=== PATIENT | male | born 1945 | race African-American/Black ===

== ENCOUNTER 2017-03-07 23:47 | Inpatient (IN) ==
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
[2017-03-08] MEDS ORDERED: cefTRIAXone 1,000 MG in SODIUM CHLORIDE 0.9% 100 ML IV STA (01:49)
[2017-03-08] MEDS ORDERED: cefTRIAXone 1,000 MG VIAL ONE (01:55)
[2017-03-08] MEDS ORDERED: SODIUM CHLORIDE 0.9% 1,000 ML IV SCH (04:25)
[2017-03-08] MEDS ORDERED: ONDANSETRON 4 MG/2 ML VIAL IV PRN (04:25)
[2017-03-08] MEDS ORDERED: DILTIAZEM INJ 100 MG in SODIUM CHLORIDE 0.9% 100 ML IV SCH (04:25)
[2017-03-08] MEDS ORDERED: LORazepam 1 MG TABLET PO PRN (04:25)
[2017-03-08] MEDS ORDERED: MORPHINE 2 MG/1 ML SYRINGE IV PRN (04:25)
--- NOTE | 2017-03-08 06:01 | EKG Report ---
Stationary ECG Study [facility] Test Date: 03/08/2017 12:02:50 AM Pat Name: RAGHU AZUL Department: Room: 282 Gender: M Legal Services Manager: : 1945 Requested by: Jones Ladd Order Number: [id number] Karthik MD: LESA BERGMAN Intervals [place] Rate: 123 P: 999 AK: 0 QRS: 36 QRSD: 102 T: 85 QT: 333 QTc: 406 Interpretive Statements ATRIAL FIBRILLATION WITH RAPID VENTRICULAR RESPONSE ABNORMAL RHYTHM ECG Electronically Signed On 03-08-17 11:01:41 CDT by LESA BERGMAN [email or web address]
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
[2017-03-08 08:22] LABS: Troponin I Only 0.033 NG/ML (0.00-0.045)
--- NOTE | 2017-03-08 08:38 | Ultrasound Report ---
US carotid duplex BI Indication: Right-sided dysmetria. Comparison: None. Technique: Multiple longitudinal and transverse real-time sonographic images of the bilateral carotid arterial systems are obtained with grayscale, spectral, and color Doppler analysis. Findings: Peak systolic velocities within the right CCA, proximal ICA, and distal ICA are 93, 38, and 46 cm/s respectively. Peak systolic velocities within the left CCA, proximal ICA, and distal ICA are 90, 43, and 47 cm/s respectively. ICA/CCA ratios on the right and left are 0.5 and 0.5 respectively. Antegrade flow demonstrated within the bilateral vertebral arteries. Grayscale imaging demonstrates mild bilateral atherosclerotic plaque. IMPRESSION: No convincing sonographic evidence of significant (50% or greater) narrowing of either cervical internal carotid artery. Indirect NASCET criteria utilized. PROCEDURE INTERPRETED AT [facility] DEPARTMENT OF RADIOLOGY Final Report Signed by: Dr Adair Beck
--- NOTE | 2017-03-08 08:41 | EKG Report ---
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
[2017-03-08] MEDS: PANTOPRAZOLE 40 MG TABLET PO SCH (08:54)
[2017-03-08] MEDS: TAMSULOSIN 0.4 MG CAPSULE PO SCH ×2 (08:54→21:57)
[2017-03-08] MEDS: METOPROLOL SUCCINATE XL 25 MG TABLET PO SCH ×2 (08:55→21:57)
[2017-03-08] MEDS: APIXABAN 5 MG TABLET PO SCH ×2 (08:55→21:57)
[2017-03-08] MEDS: FINASTERIDE 5 MG TABLET PO SCH (08:55)
[2017-03-08] MEDS: LUBIPROSTONE 8 MCG CAPSULE PO SCH ×2 (08:56→21:57)
[2017-03-08] MEDS: MULTIVITAMIN (CENTRUM) TABLET PO SCH (08:56)
[2017-03-08] MEDS: VALSARTAN 160 MG TABLET PO SCH (08:56)
[2017-03-08] MEDS: ATORVASTATIN 80 MG TABLET PO SCH (08:56)
[2017-03-08] MEDS: COLCHICINE 0.6 MG TABLET PO SCH (08:57)
[2017-03-08] MEDS: buPROPion 75 MG TABLET PO SCH (08:58)
[2017-03-08] MEDS: POTASSIUM CHLORIDE 10 MEQ TABLET PO SCH (08:58)
[2017-03-08] MEDS ORDERED: amLODIPine 5 MG TABLET PO SCH (09:00)
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
[2017-03-08 10:57] LABS: Basophils # 0.1 10*3/uL (0.0-0.2); Basophils % 0.3 % (0.0-0.8); Eosinophils # 0.3 10*3/uL (0.0-0.87); Eosinophils % 1.8 % (0.00-10.9); Hematocrit 36.9 VOL% (42.0-52.0); Hemoglobin 12.7 GM/DL (14.0-18.0); Immature Granulocytes % 0.7 %; Lymphocytes # 1.1 10*3/uL (1.4-4.0); Lymphocytes % 7.4 % (21.2-54.2); Mean Corpuscular HGB Conc 34.4 GM/DL (32-36); Mean Corpuscular Hemoglobin 32 PG (27-34); Mean Corpuscular Volume 92.9 FL (87-102); Mean Platelet Volume 9.5 FL (9.6-12.0); Monocytes # 0.9 10*3/uL (0.11-0.8); Monocytes % 6.2 % (1.7-12.7); Neutrophils % 83.6 % (38.7-73.9); Platelet Count 147 T/CUMM (130-400); Red Blood Count 3.97 MC/CUMM (3.8-5.5); Red Cell Distribution Width 14.9 % (9.3-17.3); White Blood Count 14.4 T/CUMM (4-12)
[2017-03-08 11:30] LABS: Calcium 8.5 MG/DL (8.5-10.1); Magnesium 2.1 MG/DL (1.8-2.4); Osmolality,Calculated 284.4 MOS/KG (273-304); Potassium 3.9 MMOL/L (3.5-5.1)
--- NOTE | 2017-03-08 12:49 | Magnetic Resonance Report ---
History: Right-sided dysmetria Date: 03/08/2017 Study: MRI brain without IV contrast Comparison exam: MRI brain November 13, 2015 The brain was imaged in 3 planes on the 1.5 Isela magnet without IV contrast, to include diffusion, T2, FLAIR, gradient echo, and T1-weighted sequences. The ventricles are midline in position without evidence of hydrocephalus. There is no Chiari I malformation. There is no gross pituitary mass. There is no evidence of acute ischemia on the diffusion sequence. There is a moderate amount of patchy increased FLAIR and T2 signal in the periventricular white matter without mass effect or enhancement compatible with changes of small vessel disease. Small areas of chronic lacunar ischemia are noted in the jaime bilaterally, bilateral thalami, bilateral putamen, and bilateral caudate nuclei as before. There is a chronic lacunar infarct in the centrum semiovale on the right which was not present on the comparison study. There is no parenchymal hemorrhage or area of mass effect. There is a normal flow void in the superior sagittal sinus. There is no extra-axial hematoma. Remote post cataract surgery changes of either globe are present. Impression: Chronic ischemic changes with areas of chronic lacunar infarct in the jaime and basal ganglia regions. There is a chronic lacunar infarct in the centrum semiovale on the right which was not present in 2016. No acute process. No parenchymal hemorrhage PROCEDURE INTERPRETED AT [facility] DEPARTMENT OF RADIOLOGY Final Report Signed by: Dr. Saida Ford
--- NOTE | 2017-03-08 13:16 | EKG Report ---
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
[2017-03-08] MEDS: DILTIAZEM 90 MG TABLET PO SCH ×2 (14:09→21:56)
[2017-03-08] MEDS ORDERED: DILTIAZEM 60 MG TABLET PO SCH (15:00)
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
[2017-03-08] MEDS: cefTRIAXone 1,000 MG in SODIUM CHLORIDE 0.9% 100 ML IV SCH (21:54)
[2017-03-08] MEDS: AMITRIPTYLINE 10 MG TABLET PO SCH (21:56)
[2017-03-08] MEDS: DONEPEZIL 10 MG TABLET PO SCH (21:57)
[2017-03-08] MEDS: metFORMIN 500 MG TABLET PO SCH (21:57)
[2017-03-09 05:17] LABS: Basophils % 0.4 % (0.0-0.8); Eosinophils # 0.5 10*3/uL (0.0-0.87); Eosinophils % 4.4 % (0.00-10.9); Hematocrit 36.5 VOL% (42.0-52.0); Hemoglobin 12.4 GM/DL (14.0-18.0); Immature Granulocytes % 0.6 %; Immature Granulocytes Absolute 0.06 #; Lymphocytes # 1.2 10*3/uL (1.4-4.0); Lymphocytes % 11.8 % (21.2-54.2); Mean Corpuscular Hemoglobin 32 PG (27-34); Mean Corpuscular Volume 93.1 FL (87-102); Mean Platelet Volume 10.8 FL (9.6-12.0); Monocytes # 0.6 10*3/uL (0.11-0.8); Monocytes % 6.2 % (1.7-12.7); Neutrophils # 7.8 10*3/uL (1.4-7.4); Neutrophils % 76.6 % (38.7-73.9); Platelet Count 182 T/CUMM (130-400); Red Blood Count 3.92 MC/CUMM (3.8-5.5); White Blood Count 10.2 T/CUMM (4-12)
[2017-03-09 06:05] LABS: Albumin 2.6 G/DL (3.4-5.0); Bilirubin,Total 1.5 MG/DL (0.2-1.0); Calcium 8.5 MG/DL (8.5-10.1); Magnesium 2.4 MG/DL (1.8-2.4); Risk Ratio 2.24; Thyroid Stimulating Hormone 0.645 uIU/ml (0.358-3.74); Total Protein 5.6 G/DL (6.4-8.3); VLDL CHOLESTEROL 12.6 MG/DL
[2017-03-09 06:57] LABS: Apearance,Urine Slightly Hazy (Clear); Bilirubin,Urine Negative (Negative); Blood, Urine Small mg/dL (Negative); Glucose,Urine (UA) Negative (Negative); Ketones,Urine Negative (Negative); Mucus,Urine Occasional /LPF (Occasional); Nitrite,Urine Negative (Negative); Protein,Urine Negative; RBC,Urine 1 /HPF (0-4); Urine Color Yellow (Yellow); Urine Specific Gravity 1.015 (1.001-1.035); WBC,Urine 34 /HPF (0-6)
--- NOTE | 2017-03-09 07:40 | Family Practice Progress Note ---
Family Practice - PN: Subj Interval history: Patient states he is feeling well this morning does not have any chest pain or perceived palpitations. He still in atrial fibrillation and EKG this morning shows his heart rate is 123. He states he still feels a little unsteady on his feet. I note that his MRI scan showed no new finding and his carotid Dopplers were normal. I will ask physical therapy to ambulate him today. He denies any neuro symptoms at present. Exam (Progress Note) - Constitutional Vitals: Period Temp Pulse Resp BP Sys/Roman Pulse Ox Last 24 Hr 98.4 F-100.0 F 74-110 15-20 96-125/55-74 91-97 Exam: Objective a well-developed gentleman who is awake alert and able give good history. He still in atrial fibrillation on the monitor. Cardiovascular: Irregular regular rhythm without murmurs or gallops. Respiratory: The lungs clear to auscultation bilaterally. Abdomen: Abdomen soft and nontender to palpation. Neuro: He has symmetrical strength in upper and lower extremities. There is no cranial nerve deficit. He does have slight dysmetria on finger-nose on the right. Results - Labs CBC & BMP: 03/09/17 03:33 03/09/17 03:33 Lab Results: I have reviewed the past 24 hour labs - EKG EKG shows: atrial fibrillation (Heart rate 123 bpm) Assessment and Plan (1) Atrial fibrillation with rapid ventricular response Status: Acute Assessment and plan: 03/08/2017: Patient's heart rate is presently controlled with IV Cardizem. Patient is on Eliquis. 03/09/2017: Patient heart rate is coming down. I will discharge him when cardiology is satisfied. Current Visit: Yes (2) CVA (cerebral vascular accident) Status: Acute Assessment and plan: 03/08/2017: MRI of the brain and carotid Dopplers were ordered. Dr. Poole has been consulted. Patient is already on Eliquis. 03/09/2017: I suspect his increasing difficulty with his gait was related to the distance he probably had to walk for the graduation ceremony. There is no new findings on his MRI of his carotids are completely clear. I will ask physical therapy to ambulate with him today. Current Visit: Yes
--- NOTE | 2017-03-09 08:32 | XRay Report ---
XR chest 1V portable Indication: SOB Comparison: Chest x-ray dated March 07, 2017 Technique: Single frontal view of the chest. Findings: Continued cardiomegaly. Chronic change of the lungs without focal consolidation, pleural effusion, or pneumothorax. Visualized osseous and surrounding soft tissue structures appear grossly unchanged. IMPRESSION: Continued cardiomegaly without jeffrey pulmonary edema. PROCEDURE INTERPRETED AT [facility] DEPARTMENT OF RADIOLOGY Final Report Signed by: Dr Adair Beck
[2017-03-09] MEDS: POTASSIUM CHLORIDE 10 MEQ TABLET PO SCH (08:59)
[2017-03-09] MEDS: TAMSULOSIN 0.4 MG CAPSULE PO SCH ×2 (08:59→20:50)
[2017-03-09] MEDS: COLCHICINE 0.6 MG TABLET PO SCH (08:59)
[2017-03-09] MEDS: LUBIPROSTONE 8 MCG CAPSULE PO SCH ×2 (08:59→20:49)
[2017-03-09] MEDS: APIXABAN 5 MG TABLET PO SCH ×2 (08:59→20:50)
[2017-03-09] MEDS: ATORVASTATIN 80 MG TABLET PO SCH (08:59)
[2017-03-09] MEDS: FINASTERIDE 5 MG TABLET PO SCH (08:59)
[2017-03-09] MEDS: DILTIAZEM 90 MG TABLET PO SCH ×3 (08:59→20:50)
[2017-03-09] MEDS: METOPROLOL SUCCINATE XL 25 MG TABLET PO SCH ×2 (08:59→21:10)
[2017-03-09] MEDS: MULTIVITAMIN (CENTRUM) TABLET PO SCH (08:59)
[2017-03-09] MEDS: ASPIRIN EC 81 MG TABLET PO SCH (08:59)
[2017-03-09] MEDS: PANTOPRAZOLE 40 MG TABLET PO SCH (08:59)
[2017-03-09] MEDS: buPROPion 75 MG TABLET PO SCH (09:00)
[2017-03-09] MEDS: VALSARTAN 160 MG TABLET PO SCH (09:00)
[2017-03-09] MEDS ORDERED: VALSARTAN 80 MG TABLET PO SCH (10:56)
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
[2017-03-09 11:54] LABS: Troponin I Only < 0.015 NG/ML (0.00-0.045)
[2017-03-09] MEDS: CIPROFLOXACIN 500 MG TABLET PO SCH ×2 (15:24→20:50)
[2017-03-09 18:26] LABS: Troponin I Only < 0.015 NG/ML (0.00-0.045)
[2017-03-09] MEDS: metFORMIN 500 MG TABLET PO SCH (20:49)
[2017-03-09] MEDS: AMITRIPTYLINE 10 MG TABLET PO SCH (20:49)
[2017-03-09] MEDS: DONEPEZIL 10 MG TABLET PO SCH (20:50)
[2017-03-09] MEDS ORDERED: DILTIAZEM CD 180 MG CAPSULE PO SCH (21:00)
[2017-03-09] MEDS: cefTRIAXone 1,000 MG in SODIUM CHLORIDE 0.9% 100 ML IV SCH (21:16)
[2017-03-10 05:18] LABS: Basophils % 0.5 % (0.0-0.8); Eosinophils # 0.6 10*3/uL (0.0-0.87); Eosinophils % 9.1 % (0.00-10.9); Hematocrit 35.4 VOL% (42.0-52.0); Hemoglobin 11.9 GM/DL (14.0-18.0); Immature Granulocytes % 0.9 %; Immature Granulocytes Absolute 0.06 #; Lymphocytes % 15.6 % (21.2-54.2); Mean Corpuscular HGB Conc 33.6 GM/DL (32-36); Mean Corpuscular Hemoglobin 31 PG (27-34); Mean Corpuscular Volume 93.4 FL (87-102); Mean Platelet Volume 11.2 FL (9.6-12.0); Monocytes # 0.6 10*3/uL (0.11-0.8); Monocytes % 9.3 % (1.7-12.7); Neutrophils # 4.1 10*3/uL (1.4-7.4); Neutrophils % 64.6 % (38.7-73.9); Platelet Count 191 T/CUMM (130-400); Red Blood Count 3.79 MC/CUMM (3.8-5.5); White Blood Count 6.4 T/CUMM (4-12)
[2017-03-10 05:42] LABS: Calcium 8.6 MG/DL (8.5-10.1); Magnesium 2.1 MG/DL (1.8-2.4); Osmolality,Calculated 284.1 MOS/KG (273-304); Potassium 4.3 MMOL/L (3.5-5.1)
--- NOTE | 2017-03-10 07:45 | Discharge Summary ---
Hospital Course - Hospital Course Hospital Course: Patient 71-year-old black male presented emergency room day of admission with unsteady gait was found to have atrial fibrillation rapid ventricular response. Patient was started on IV Cardizem and switched to oral medications. His heart rate is presently well controlled. Patient has a history of atrial fibrillation beginning in January of this year. I start him on Eliquis at that time he has been followed by cardiology. Patient had no chest pain shortness of breath associated with this and had no perception of his fast heart rate. I was concerned as this patient had dysmetria on finger to nose on the right and heel to boone on the right as well. MRI of the brain revealed no acute CVA and carotid Dopplers are unremarkable. He was seen by neurology who did not think he required any further therapy other than the Eliquis he was already taking. Patient's family wants him evaluated by cardiology in [place] and I discussed his care with Dr. Homero Ledezma who the family knows. He will see him as an outpatient and arrange outpatient follow-up. Diagnosis - Discharge Diagnosis (1) Atrial fibrillation with rapid ventricular response Status: Acute (2) CVA (cerebral vascular accident) Status: Ruled-out Specialty Discharge - Follow Up or Referrals Follow up with: Clinton Stacy MD [Physician] - 2 Weeks (with EKG) Discharge Plan - Discharge Data Disposition: Disch To Home/Self Care Condition at Discharge: Stable Discharge Diet: advance to your usual diet Activity: resume usual activities as tolerated Hygiene: no restrictions Weight Bearing at Discharge: full weight bearing Contact your physician if you experience:: fever over 101 - Discharge Medications New Diltiazem Cd Cap [Cardizem CD] 180 mg PO BID #60 capsule Pantoprazole Tab [Protonix Tab] 40 mg PO DAILY #30 tablet Aspirin EC Tab 81 mg PO DAILY tablet Donepezil [Aricept] 10 mg PO BEDTIME tablet Continue Finasteride 5 mg PO DAILY Tamsulosin HCl 0.4 mg PO BID Centrum Silver Tablet 1 caplet PO DAILY Colchicine [Colcrys] 0.6 mg PO DAILY buPROPion HCl [Bupropion HCl] 75 mg PO DAILY Metformin HCl 500 mg PO BEDTIME LORazepam [Lorazepam] 1 mg PO DAILY PRN PRN Reason: Anxiety Atorvastatin Calcium 80 mg PO DAILY Methotrexate Tab 25 mg PO Q7DAY Potassium Chloride 10 meq PO DAILY Apixaban [Eliquis] 5 mg PO BID #60 tablet Metoprolol Succinate 25 mg PO BID Amitriptyline HCl 20 mg PO BEDTIME Lubiprostone [Amitiza] 8 mcg PO BID Valsartan 160 mg PO DAILY Discontinued Amlodipine Besylate 5 mg PO DAILY Donepezil HCl 10 mg PO BEDTIME Naproxen [Naproxen Tab] 500 mg PO BID PRN PRN Reason: Pain - Follow Up or Referral Follow Up: Clinton Stacy MD [Physician] - 2 Weeks (with EKG) Filippo Bruno MD [Primary Care Provider] - 1 Month - Forms/Instructions Exam - Constitutional Vitals: Period Temp Pulse Resp BP Sys/Roman Pulse Ox Last 24 Hr 97.1 F-97.7 F 65-93 16-20 105-119/65-75 92-95 Exam: Objective a well-developed gentleman who is awake alert and able give good history. He still in atrial fibrillation on the monitor but his heart rate is well controlled. Cardiovascular: Irregular regular rhythm without murmurs or gallops. Respiratory: The lungs clear to auscultation bilaterally. Abdomen: Abdomen soft and nontender to palpation. Neuro: He has symmetrical strength in upper and lower extremities. There is no cranial nerve deficit. He does have slight dysmetria on finger-nose on the right. Discharge Results Procedures and tests throughout hospitalization: Pending Orders 03/09/17 Urine Culture Routine 03/11/17 04:00 BMP w/ Mg [Basic Metabolic Panel w/Mg] IN AM CBC [Comp Blood Count Auto Diff] IN AM 03/12/17 04:00 BMP w/ Mg [Basic Metabolic Panel w/Mg] IN AM CBC [Comp Blood Count Auto Diff] IN AM Labs on day of discharge: Labs from last 24 hours 03/10/17 03/10/17 03/09/17 04:08 04:08 17:36 WBC 6.4 D RBC 3.79 L Hgb 11.9 L Hct 35.4 L MCV 93.4 MCH 31 MCHC 33.6 RDW 15.0 Plt Count 191 MPV 11.2 Neut % (Auto) 64.6 Lymph % (Auto) 15.6 L [place] % (Auto) 9.3 Eos % (Auto) 9.1 Baso % (Auto) 0.5 Neut # (Auto) 4.1 Lymph # (Auto) 1.0 L [place] # (Auto) 0.6 Eos # (Auto) 0.6 Baso # (Auto) 0.0 Immature Gran % 0.9 Nucleated RBC % 0.0 Immature Gran # 0.06 Nucleated RBCs # 0.00 Immature Plt Fraction 0.0 Sodium 142 Potassium 4.3 Chloride 111 H Carbon Dioxide 25 Anion Gap 10.3 BUN 15 Creatinine 1.10 GFR Calculation 94 BUN/Creatinine Ratio 13.00 Glucose 108 H POC Glucose Calculated Osmolality 284.1 Calcium 8.6 Magnesium 2.1 Total Creatine Kinase 47 CK-MB (CK-2) < 1.0 Troponin I < 0.015 03/09/17 03/09/17 11:49 11:14 WBC RBC Hgb Hct MCV MCH MCHC RDW Plt Count MPV Neut % (Auto) Lymph % (Auto) [place] % (Auto) Eos % (Auto) Baso % (Auto) Neut # (Auto) Lymph # (Auto) [place] # (Auto) Eos # (Auto) Baso # (Auto) Immature Gran % Nucleated RBC % Immature Gran # Nucleated RBCs # Immature Plt Fraction Sodium Potassium Chloride Carbon Dioxide Anion Gap BUN Creatinine GFR Calculation BUN/Creatinine Ratio Glucose POC Glucose 154 H Calculated Osmolality Calcium Magnesium Total Creatine Kinase 44 CK-MB (CK-2) < 1.0 Troponin I < 0.015 DS: Provider Date of admission: 03/08/17 01:50 Primary care physician: Filippo Bruno MD Attending physician on admission: Filippo Bruno MD Consults: 03/08/17 04:25 Consult to Case Mgmt/Social Srvs [CONS] Routine Reason for Case Mgmt/Social Srvs: Discharge Planning Consult to Physician [CONS] Routine Comment: A. fib with RVR Consulting Provider: Cardiology - [facility] When should Consulting Provider be notified: In am Consult to Specialist Group: Cardiology Person Notified: LANI Date Notified: 03/08/17 Time Notified: 07:40 Consult to Physician [CONS] Routine Comment: Shuffling gait Consulting Provider: Bill Poole When should Consulting Provider be notified: In am Consult to Specialist Group: Neurology Person Notified: MO Date Notified: 03/08/17 Time Notified: 08:30 03/09/17 07:42 Consult to Physical Therapy [CONS] Routine Reason for Physical Therapy: Ambulation Discharging clinician: Filippo Bruno MD Expected date of discharge: 03/10/17
[2017-03-10 08:25] VITALS: BP 111/75
[2017-03-10] MEDS ORDERED: DILTIAZEM CD 180 MG CAPSULE PO SCH (09:00)
[2017-03-10] MEDS: COLCHICINE 0.6 MG TABLET PO SCH (09:19)
[2017-03-10] MEDS: ASPIRIN EC 81 MG TABLET PO SCH (09:19)
[2017-03-10] MEDS: PANTOPRAZOLE 40 MG TABLET PO SCH (09:20)
[2017-03-10] MEDS: APIXABAN 5 MG TABLET PO SCH (09:21)
[2017-03-10] MEDS: METOPROLOL SUCCINATE XL 25 MG TABLET PO SCH (09:21)
[2017-03-10] MEDS: ATORVASTATIN 80 MG TABLET PO SCH (09:22)
[2017-03-10] MEDS: FINASTERIDE 5 MG TABLET PO SCH (09:22)
[2017-03-10] MEDS: LUBIPROSTONE 8 MCG CAPSULE PO SCH (09:22)
[2017-03-10] MEDS: buPROPion 75 MG TABLET PO SCH (09:23)
[2017-03-10] MEDS: MULTIVITAMIN (CENTRUM) TABLET PO SCH (09:23)
[2017-03-10] MEDS: POTASSIUM CHLORIDE 10 MEQ TABLET PO SCH (09:23)
[2017-03-10] MEDS: TAMSULOSIN 0.4 MG CAPSULE PO SCH (09:23)
[2017-03-10] MEDS: CIPROFLOXACIN 500 MG TABLET PO SCH (09:24)
[2017-03-14] MEDS ORDERED: METHOTREXATE 2.5 MG TABLET PO SCH (09:00)
== END 2017-03-10 10:25 | disposition home or self-care (01) | DRG 309 ==
LOC: EDUNIT# → EDBD → N.ED 23:47 → N.EDINP 03-08 01:50 → N.TELEN 03-08 02:28
PROVIDERS: ADMIT Family Medicine; ATTEND Family Medicine